=== PATIENT | male | born 1970 | race Caucasian/White ===

== ENCOUNTER 2025-04-13 05:57 | Observation (INO) ==
--- NOTE | 2025-03-20 11:50 | PAT Medication Instructions ---
Medication Instructions Date of Service March 20, 2025 Home Medications Medication Instructions Recorded methocarbamol 500 mg tablet 500 mg PO TID PRN muscle spasms 10/24/24 #90 tabs levothyroxine 100 mcg capsule 100 mcg PO QAM linaclotide 72 mcg capsule (Linzess) 72 mcg PO QAM methocarbamol 500 mg tablet 500 mg PO TID PRN muscle spasms rosuvastatin 20 mg tablet 20 mg PO QPM loratadine 10 mg tablet (Claritin) 10 mg PO QPM ubrogepant 100 mg tablet (Ubrelvy) 100 mg PO UD PRN Migraine Headache DO NOT take the morning of surgery linaclotide 72 mcg capsule (Linzess) 72 mcg PO QAM Take morning of surgery With a small sip of water, OTHERWISE NOTHING TO EAT OR DRINK AFTER MIDNIGHT: levothyroxine 100 mcg capsule 100 mcg PO QAM methocarbamol 500 mg tablet 500 mg PO TID PRN muscle spasms (if needed) ubrogepant 100 mg tablet (Ubrelvy) 100 mg PO UD PRN Migraine Headache (if needed ) Take evening before surgery methocarbamol 500 mg tablet 500 mg PO TID PRN muscle spasms (if needed) rosuvastatin 20 mg tablet 20 mg PO QPM loratadine 10 mg tablet (Claritin) 10 mg PO QPM ubrogepant 100 mg tablet (Ubrelvy) 100 mg PO UD PRN Migraine Headache (if needed) Other Notes If you have any questions please call us at [phone] or [phone] or [phone] or [phone]
--- NOTE | 2025-03-27 11:12 | Anesthesiology Consultation ---
Date of Service March 27, 2025 Assessment & Plan (1) Encounter for pre-operative examination: - Infectious disease screening: Per assessment on 03/27/25- No known recent infectious disease contacts or current infectious disease symptoms. - Cardiology note 03/13/25: "Based on the patient's most recent evaluation in the office, I would assess him to be low cardiovascular risk.." Received same fax again on 03/23/25. Chart Review Chart Review: Acceptable Risk for Surgery and Patient seen in Pre Admission Testing Teaching & Discussion Pre-Anesthesia Teaching/Discussion Notes: Instructed NPO after midnight before surgery,except medications with 15 cc of water. Medication instructions provided according to the PAT guidelines. History Surgery Operation Date: 04/13/25 08:50 Proposed Procedures p C6-C7 Disc Arthroplasty - Bran Louise MD s Possible Anterior Cervical Discectomy and Fusion, Spinal Cord Monitoring - Bran Louise MD Height/Weight Height: 5 ft 10 in Weight: 84.7 kg Allergies Allergy/AdvReac Type Severity Reaction Status Date / Time No Known Drug Allergies Allergy Verified 03/20/25 09:31 Medications Home Medications Medication Instructions Recorded Confirmed Last Taken levothyroxine 100 mcg capsule 100 mcg PO QAM 10/24/24 03/20/25 Unknown linaclotide 72 mcg capsule 72 mcg PO QAM 10/24/24 03/20/25 Unknown (Linzess) methocarbamol 500 mg tablet 500 mg PO TID PRN muscle spasms 10/24/24 03/20/25 Unknown #90 tabs rosuvastatin 20 mg tablet 20 mg PO QPM 10/24/24 03/20/25 Unknown loratadine 10 mg tablet (Claritin) 10 mg PO QPM 12/21/24 03/20/25 Unknown ubrogepant 100 mg tablet (Ubrelvy) 100 mg PO UD PRN Migraine Headache 12/21/24 03/20/25 Unknown Past Medical History Medical History Chronic neck pain w/right hand numbness Constipation History of migraine Hyperlipidemia Hypothyroidism Exercise / Class Metabolic Activity II 4-5 Yardwork/Stairs/Walk up hill (one FS: No CP, no SOB) Past Family History Family History Other No family history of adverse response to anesthesia Past Surgical History Surgical History History of colonoscopy History of hernia repair x2 (R/L) History of wisdom tooth extraction Status post medial meniscus repair Left knee Past Anesthesia History No Hx of Anesthesia Complications and No Family Hx of Anesthesia Complications History of PONV No Hx of PONV and No Hx of Motion Sickness Social History Smoking Status: Never smoker Do You Dip or Chew Tobacco: No (Remote hx, Quit at young age) Hx Alcohol Use: No Hx Substance Use: No substance use type: does not use Review of Systems Patient denies chest pain, shortness of breath, dyspnea on exertion, fever, chills, cough, wheezing. Physical Exam Vital Signs BP 126/79 P 54 TEMP 97.7 SP02 100%RA RESP 16 Physical Mildly decreased cervical extension range of motion. Full TMJ range of motion. TMD 3 finger breaths Mallampati Score II Dentition: missing molars Lungs: clear throughout to auscultation Cardiac: regular rate and rhythm, no murmurs noted Spine: normal Carotid arteries: negative bruit Extremities: no LE edema Lab Results Anesthesia Preop Results Results Anesthesia Widget: WBC 4.12 K/ul (4.8-10.8) L 03/27/25 Hgb 13.8 g/dL (14.0-18.0) L 03/27/25 Hct 40.3 % (42.0-52.0) L 03/27/25 Plt 218 K/uL (130-400) 03/27/25 Na 140 mmol/L (136-145) 03/27/25 K 4.1 mmol/L (3.5-5.1) 03/27/25 Cl 108 mmol/L (98-107) H 03/27/25 CO2 27 mmol/L (21-32) 03/27/25 BUN 17 mg/dl (6-23) 03/27/25 Creat 1.11 mg/dl (0.6-1.4) 03/27/25 Glucose Level 98 mg/dl (70-99(Fasting)) 03/27/25 PT 10.4 Seconds (9.0-12.0) 03/27/25 PTT 24 Seconds (21-31) 03/27/25 INR 1.0 (0.9-1.1) 03/27/25 HA1c 6.3 % (4.5-5.6) H 03/27/25 Blood Type A Positive 03/27/25 Antibody Screen NEGATIVE 03/27/25 Testing Electrocardiogram Date: 03/27/25 SB at 59bpm. Rightward axis. Chest X-Ray Date: 03/27/25 Findings: + NAD
[2025-04-13] MEDS: ACETAMINOPHEN 500 MG TAB PO SCH (06:31)
[2025-04-13] MEDS: LR 60ML/HR IV SCH (06:31)
[2025-04-13] MEDS: LR 15ML/HR IV SCH (06:31)
[2025-04-13] MEDS ORDERED: ONDANSETRON INJ 2 MG/ML 2 ML VIAL ONE (06:56)
[2025-04-13] MEDS ORDERED: GLYCOPYRROLATE 0.2 MG/ML VIAL ONE (06:56)
[2025-04-13] MEDS ORDERED: LIDOCAINE 2% 2 ML VIAL/AMP(20MG/ML) INFIL ONE (06:56)
[2025-04-13] MEDS ORDERED: NEOSTIGMINE METHYLSULFATE 1 MG/ML 10ML VIAL ONE (06:56)
[2025-04-13] MEDS ORDERED: DEXAMETHASONE SOD INJ 4 MG/ML VIAL ONE (06:56)
[2025-04-13] MEDS ORDERED: MIDAZOLAM HCL 1 MG/ML 2ML VIAL ONE (06:56)
[2025-04-13] MEDS ORDERED: ROCURONIUM BROMIDE 10 MG/ML 5 ML VIAL IV ONE ×2 (06:56→09:53)
[2025-04-13] MEDS ORDERED: PROPOFOL IV EMULSION 10 MG/ML 20 ML VIAL IV ONE (06:56)
[2025-04-13] MEDS ORDERED: SUCCINYLCHOLINE CHLORIDE 20 MG/ML 10 ML VIAL IV ONE (06:58)
[2025-04-13] MEDS ORDERED: PHENYLEPHRINE 100MCG/ML 5ML SYR ONE (06:59)
[2025-04-13] MEDS ORDERED: REMIFENTANIL HCL 1 MG VIAL IV ONE (07:04)
[2025-04-13] MEDS ORDERED: PROPOFOL IV EMULSION 10 MG/ML 100 ML VIAL IV ONE (07:04)
[2025-04-13] MEDS ORDERED: ATROPINE SULFATE 0.1 MG/ML 10ML SYR IV PRN (07:09)
[2025-04-13] MEDS ORDERED: HYDROmorphone INJ 1 MG/ML SYRINGE IV PRN ×2 (07:09→13:12)
[2025-04-13] MEDS ORDERED: ONDANSETRON INJ 2 MG/ML 2 ML VIAL IV PRN ×2 (07:09→13:12)
[2025-04-13] MEDS: SCOPOLAMINE 1 MG/72 HR TDSY PATCH TD ONE ×2 (07:10→07:13)
--- NOTE | 2025-04-13 07:23 | History & Physical Report ---
Date of Service April 13, 2025 Assessment & Plan (1) Cervical stenosis of spine: (2) Herniated nucleus pulposus, C6-7 right: Plan Assessment: 54-year-old male with right cervical radiculopathy following a C7 dermatomal pattern with right upper extremity weakness in the C7 myotome, failed conservative care in the form of activity modification, oral medications, epidural injections with symptoms for greater than 1 year. Plan: I discussed treatment options with the patient today, I discussed that he has a C6-7 disc herniation which would correlate with the symptoms he is experiencing into the right upper extremity, do not have much more to offer in the form of conservative care as he has failed appropriate conservative care with symptoms for 1 year or more. He does have some mild findings of cubital tunnel syndrome on the right however his main issue is the pain from the neck into the posterior arm so he would like to take care of that first. We did discuss that even with surgery he may eventually need a cubital tunnel release on the right and he voiced understanding. History of Present Illness Chief Complaint: Right Arm Pain Primary Care Provider: JAMEY Savage HPI: Patient is a 54-year-old male who comes in today for continued right upper extremity radiculopathy that has been ongoing for greater than 1 year duration. The past he had tried activity modification, oral medications and recently went to pain management for an epidural injection. None of these of the provided significant relief of symptoms. Continues with pain that originates from the right side of the neck into the posterior arm and central digits of the hand consistent with a C7 radiculopathy. Allergies Allergy/AdvReac Type Severity Reaction Status Date / Time No Known Drug Allergies Allergy Verified 04/13/25 06:02 Home Medications Medication Instructions Recorded Confirmed Type levothyroxine 100 mcg capsule 100 mcg PO QAM 10/24/24 04/13/25 History linaclotide 72 mcg capsule 72 mcg PO QAM 10/24/24 04/13/25 History (Linzess) methocarbamol 500 mg tablet 500 mg PO TID PRN muscle spasms 10/24/24 04/13/25 Rx #90 tabs rosuvastatin 20 mg tablet 20 mg PO QPM 10/24/24 04/13/25 History loratadine 10 mg tablet (Claritin) 10 mg PO QPM 12/21/24 04/13/25 History ubrogepant 100 mg tablet (Ubrelvy) 100 mg PO UD PRN Migraine Headache 12/21/24 04/13/25 History Past Med/Surg History Problem List Encounter for pre-operative examination Cervical stenosis of spine Herniated nucleus pulposus, C6-7 right Bruxism (teeth grinding) Tinnitus of right ear Sensorineural hearing loss (SNHL) of both ears Foraminal stenosis of cervical region Other cervical disc degeneration at C6-C7 level Numbness of right hand Other cervical disc degeneration, mid-cervical region, unspecified level Cervical radicular pain Medical History Chronic neck pain w/right hand numbness Constipation History of migraine Hyperlipidemia Hypothyroidism Surgical History History of colonoscopy History of hernia repair x2 (R/L) History of wisdom tooth extraction Status post medial meniscus repair Left knee Family History Other No family history of adverse response to anesthesia Social History Smoking Status: Never smoker Second Hand Exposure: No; Do You Dip or Chew Tobacco: No (Remote hx, Quit at young age); Tobacco Cessation Education Requested by Patient: No Hx Alcohol Use: No Hx Substance Use: No Preferred Language: Croatian Communication Ability: Effective Ring Striker Required: No Beliefs That Will Affect Care: None Current Living Situation: Spouse Other Information That Helps Us Care for You: No Feels Safe at Home: Yes Safety Concerns: Feels Safe At This Time Assistive Devices: Glasses Review of Systems All systems reviewed & are unremarkable except as noted in HPI & below. Physical Exam Physical exam: Constitutional: Well developed, appears stated age Psych: patient is coherent and answers questions appropriately, normal affect Eye: Normal gaze, no redness to sclera, pupils round and equal Pulm: Normal respiratory effort, no wheezing Cardiovascular: no significant peripheral edema, 2+ radial pulses Skin shows no rashes, lesions 5/5 muscle strength with testing of deltoids, wrist extensors, triceps, finger flexion, and hand intrinsics with the exception of 4 out of 5 strength right triceps and finger flexion Sensation intact to light touch in the C5-T1 dermatomes bilaterally with paresthesias right C7 dermatome 2+ reflexes at biceps, triceps, and brachioradialis bilaterally Positive Tinel sign right cubital tunnel Negative Edwards sign bilaterally, positive Spurling test on the right Normal gait Results & Data Results & Data Laboratory Results . Diagnostic Findings . PG Care Time/CCT Total # of Minutes Spent Total Time Spent with Patient: Total time spent is greater than 50% in coordination of care (as documented) at patient's floor/unit and/or counseling patient: Coding Level of Care Code None Diagnoses Cervical stenosis of spine M48.02 Herniated nucleus pulposus, C6-7 right M50.223
[2025-04-13] MEDS ORDERED: SUGAMMADEX SODIUM 200 MG/2 ML VIAL IV ONE (08:02)
[2025-04-13] MEDS ORDERED: HYDROmorphone INJ 2 MG/ML SYR/VIAL ONE (08:07)
[2025-04-13] MEDS: VANCOMYCIN HCL 1000MG/20ML VIAL ONE (10:09)
[2025-04-13] MEDS: FLOSEAL HEMOSTATIC MATRIX 5ML TOP ONE (10:09)
--- NOTE | 2025-04-13 10:47 | Operative Report ---
Post Operative Report Procedure Date: April 13, 2025 PREOPERATIVE DIAGNOSES: 1. Cervical radiculopathy. 2. C6-7 disc herniation. POSTOPERATIVE DIAGNOSES: 1. Cervical radiculopathy. 2. C6-7 disc herniation. PROCEDURES PERFORMED: 1. C6-7 total disc replacement ([id number]). SURGEON: Bran Louise MD ANESTHESIA: General endotracheal. ESTIMATED BLOOD LOSS: 10 mL. SPECIMENS: None. DRAINS: Franco drain. COMPLICATIONS: None. DISPOSITION: Stable to postanesthesia care unit. INSTRUMENTATION: ProDisc Vivo INDICATION FOR PROCEDURE: The patient has suffered from severe and unrelenting symptoms despite exhaustive conservative management. After discussing the benefits and risks of continued conservative management versus operative intervention, the patient elected to proceed with surgery. PROCEDURE IN DETAIL: Informed consent was obtained prior to the procedure. In the preoperative holding area, the patient's anterior neck was marked with a marking pen. The patient was taken to the operating room and anesthesia was initiated. The patient was placed supine on a regular operating room table. The neck was placed in a neutral position. All prominences were carefully padded. The anterior neck was prepped and draped in typical sterile fashion. Antibiotics were administered. A timeout was performed. Neuromonitoring was utilized, including somatosensory evoked potentials, running electromyography and motor evoked potentials. These remained stable throughout the case. A left-sided approach was planned. A #10 blade was used to incise the skin. Bryce vie electrocautery was used to maintain meticulous hemostasis as dissection was completed through the subcutaneous and platysma. The interval between the sternocleidomastoid and the strap musculature was identified and bluntly dissected. The carotid sheath was palpated, retracted laterally and protected. The anterior cervical spine was identified and exposed. A spinal needle was placed into the disc space to confirm the appropriate level using x-ray. The longus colli were carefully elevated off the anterior spine laterally. Care was taken to not dissect too laterally so as to protect the sympathetic chains. [place] pins were placed and a small amount of distraction was applied across the disc space. A total discectomy along with bilateral foraminotomies were completed. The posterior longitudinal ligament was taken down. The central thecal sac and the bilateral C7 exiting nerve roots were now completely decompressed. Under fluoroscopy, various trials of the disc replacement were implanted. Ultimately, the appropriate size was determined. The implant was placed midline and to an appropriate depth. Bone wax covered the small area of bleeding bone. The wound was thoroughly irrigated. Meticulous hemostasis was achieved. A single drain was placed deep. The platysma and subcutaneous were closed using braided, absorbable suture. The cutaneous was closed using a 4-0 monofilament, absorbable suture. A sterile dressing was placed. At the end of the case, all needle and sponge counts were correct. The patient was awakened from anesthesia without complication and taken to the PACU in stable condition.
--- NOTE | 2025-04-13 10:58 | Fluoroscopy Report ---
INTRAOPERATIVE RADIOGRAPHS CLINICAL HISTORY: Cervical spine surgery. Fluoro time: 61 seconds Ka,r: 11.84 mGy FINDINGS: 6 Spot fluoroscopic views of the cervical spine are presented. An endotracheal tube is in p lace. On the initial images a surgical probe projects over the disc space at C6-C7. Discectomy change is later shown at this level. The disc spacer appears well aligned. IMPRESSION: Intraoperative images from cervical spine surgery as above. See operative report for deta iled findings. Electronically signed by: Bran Gipson M.D. 04/13/2025 10:57 AM
--- NOTE | 2025-04-13 12:19 | Anesthesiology Progress Note ---
Date of Service April 13, 2025 Anesthesia Post Procedure Vital Signs Vital Signs: Temp Pulse Resp BP Pulse Ox O2 Del Method O2 Flow Rate 04/13/25 12:10 79 18 121/81 95 Nasal Cannula 3 04/13/25 12:00 95 H 14 124/85 94 Nasal Cannula 3 04/13/25 11:50 78 16 133/98 94 Oxymask 4 04/13/25 11:40 78 16 141/94 H 94 Oxymask 6 04/13/25 11:30 85 16 142/85 H 95 Oxymask 9 04/13/25 11:20 69 14 148/92 H 94 Oxymask 9 04/13/25 11:10 83 14 167/101 H 95 Oxymask 9 04/13/25 11:00 77 15 137/83 95 Oxymask 9 04/13/25 10:50 79 14 136/84 90 Oxymask 9 04/13/25 10:44 36 C L 75 15 141/90 H 93 Oxymask 9 04/13/25 06:12 36.5 C 72 18 134/94 96 Room Air Transfer of Care Handoff Completed per policy Notes Mental Status: alert / awake / arousable Patient Amnestic to Procedure: Yes Nausea / Vomiting: adequately controlled Pain: adequately controlled Airway Patency, RR, SpO2: stable & adequate BP & HR: stable & adequate Hydration State: stable & adequate Anesthetic Complications: no major complications apparent and Pt Satisfied with anesthetic care
[2025-04-13] MEDS ORDERED: ONDANSETRON 4 MG OD TAB PO PRN (13:12)
[2025-04-13] MEDS ORDERED: METHOCARBAMOL 500 MG TABLET PO PRN (13:12)
[2025-04-13] MEDS ORDERED: MAGNESIUM HYDROXIDE SUSP 30 ML UDC PO PRN (13:12)
[2025-04-13] MEDS ORDERED: diphenhydrAMINE Capsule 25 MG CAP PO PRN (13:12)
[2025-04-13] MEDS ORDERED: ALUMINUM/MAGNESIUM SUSP 30 ML UDC PO PRN (13:12)
[2025-04-13] MEDS ORDERED: FAMOTIDINE 20 MG TAB PO PRN (13:12)
[2025-04-13] MEDS ORDERED: NALOXONE HCL 0.4 MG/1 ML VIAL/CARP IV PRN (13:12)
[2025-04-13] MEDS ORDERED: PROMETHAZINE 12.5 MG/50.5 ML BAG IV PRN (13:12)
[2025-04-13] MEDS ORDERED: RACEPINEPHRINE 2.25% NEBU SOLN 0.5 ML VIAL INH PRN (13:12)
[2025-04-13] MEDS ORDERED: LORazepam 0.5 MG TAB PO PRN (13:12)
[2025-04-13] MEDS ORDERED: LORazepam Inj 0.5 MG in SYRINGE 0.25 ML IV PRN (13:12)
[2025-04-13] MEDS ORDERED: dexAMETHasone 8 MG in SYRINGE 0 ML IV PRN (13:12)
[2025-04-13] MEDS ORDERED: DO NOT ADMINISTER PNEUMOCOCCAL VACCINE PRN (13:12)
[2025-04-13] MEDS ORDERED: SOD PHOSPHATE/SOD BIPHOSPHATE ENEMA 132 ML BTL PR PRN (13:12)
[2025-04-13] MEDS ORDERED: DO NOT ADMINISTER FLU VACCINE PRN (13:12)
[2025-04-13] MEDS ORDERED: ACETAMINOPHEN 1,000 MG/100 ML VIAL IV PRN (13:12)
[2025-04-13] MEDS ORDERED: METOCLOPRAMIDE HCL INJ 5 MG/ML 2 ML VIAL IV PRN (13:12)
[2025-04-13] MEDS ORDERED: DEXAMETHASONE SOD INJ 4 MG/ML VIAL IV SCH (14:00)
[2025-04-13] MEDS: dexAMETHasone 10 MG in SYRINGE 0 ML IV SCH (16:05)
[2025-04-13] MEDS: LACTATED RINGER'S 1,000 ML IV SCH (16:05)
[2025-04-13] MEDS: CHECK SCOPOLAMINE PATCH PLACEMENT SCH (16:12)
[2025-04-13] MEDS: ACETAMINOPHEN 500 MG TAB PO PRN (19:45)
[2025-04-13] MEDS: DOCUSATE SODIUM/SENNA 50/8.6MG TAB PO SCH (21:15)
[2025-04-13] MEDS: LORATADINE 10 MG TAB PO SCH (21:15)
[2025-04-13] MEDS: ROSUVASTATIN CALCIUM 20 MG TAB PO SCH (21:15)
[2025-04-14] MEDS: POLYETHYLENE (MIRALAX) 17 GM PACK PO SCH (05:14)
[2025-04-14 05:42] VITALS: RESP 18
[2025-04-14] MEDS: LEVOTHYROXINE SODIUM 100 MCG TABLET PO SCH (06:36)
[2025-04-14 06:51] LABS: Hematocrit (blood only) 38.4 % (42.0-52.0); Hemoglobin 13.3 g/dL (14.0-18.0); Mean Corpuscular Hemoglobin 31.3 pg (25.0-34.0); Mean Corpuscular Volume 90.4 fL (80.0-100.0); Platelet Count 232 K/uL (130-400); RDW Standard Deviation 39.9 fL (36.4-46.3); Red Blood Count 4.25 M/uL (4.70-6.10); White Blood Count 15.20 K/ul (4.8-10.8)
[2025-04-14 07:22] LABS: Immature Granulocytes # (auto) 0.09 K/uL (0.01-0.20); Immature Granulocytes % (auto) 0.6 %; Toxic Vacuolation 1+
[2025-04-14 07:31] LABS: Anion Gap 10.0 (3-11); Blood Urea Nitrogen 17.0 mg/dl (6-23); Calcium 9.3 mg/dl (8.6-10.3); Carbon Dioxide 24.0 mmol/L (21-32); Chloride 106.0 mmol/L (98-107); Creatinine Clr Calc Pharmacy 81.9 ml/min; Glucose 157.0 mg/dl (70-99(Fasting)); Potassium 4.2 mmol/L (3.5-5.1); Sodium 140.0 mmol/L (136-145)
[2025-04-14 08:21] VITALS: BP 122/76; TEMP 97.9; O2SAT 93
--- NOTE | 2025-04-14 10:08 | Orthopedic Progress Note ---
Date of Service April 14, 2025 Assessment & Plan (1) Status post cervical disc replacement: (2) Cervical stenosis of spine: (3) Herniated nucleus pulposus, C6-7 right: Plan Discontinue drain, minimal drainage over the last dressing change Pain control with oral oxycodone, Tylenol, muscle relaxer discharge home today after x-rays Subjective Status post cervical disc arthroplasty, no radicular complaints this morning. Minor dysphagia, no airway issues overnight Review of Systems All systems reviewed & are unremarkable except as noted in HPI & below. Physical Exam 5 out of 5 strength C5-T1 myotomes Sensation intact light touch C5-T1 dermatome drain with minimal output over last 10 hours Results & Data Results & Data Laboratory Results . Diagnostic Findings . PG Care Time/CCT Total # of Minutes Spent Total Time Spent with Patient: Total time spent is greater than 50% in coordination of care (as documented) at patient's floor/unit and/or counseling patient: Coding Level of Care Code 33671 Post Operative Follow-Up Diagnoses Status post cervical disc replacement Z98.890 Cervical stenosis of spine M48.02 Herniated nucleus pulposus, C6-7 right M50.223
--- NOTE | 2025-04-14 10:29 | Discharge Summary ---
Date of Service April 14, 2025 Admission HPI (Per Admitting) HPI: Patient is a 54-year-old male who comes in today for continued right upper extremity radiculopathy that has been ongoing for greater than 1 year duration. The past he had tried activity modification, oral medications and recently went to pain management for an epidural injection. None of these of the provided significant relief of symptoms. Continues with pain that originates from the right side of the neck into the posterior arm and central digits of the hand consistent with a C7 radiculopathy. Admission Exam (Per Admitting) Physical exam: Constitutional: Well developed, appears stated age Psych: patient is coherent and answers questions appropriately, normal affect Eye: Normal gaze, no redness to sclera, pupils round and equal Pulm: Normal respiratory effort, no wheezing Cardiovascular: no significant peripheral edema, 2+ radial pulses Skin shows no rashes, lesions 5/5 muscle strength with testing of deltoids, wrist extensors, triceps, finger flexion, and hand intrinsics with the exception of 4 out of 5 strength right triceps and finger flexion Sensation intact to light touch in the C5-T1 dermatomes bilaterally with paresthesias right C7 dermatome 2+ reflexes at biceps, triceps, and brachioradialis bilaterally Positive Tinel sign right cubital tunnel Negative Edwards sign bilaterally, positive Spurling test on the right Normal gait Principal Diagnosis Same as "Discharge Diagnosis" noted below under Discharge Instructions. Discharge Exam 5 out of 5 strength C5-T1 myotomes Sensation intact light touch C5-T1 dermatome drain with minimal output over last 10 hours Discharge Data Procedures Performed Operation Date: 04/13/25 07:30 Actual Procedures p C6-C7 Disc Arthroplasty, Spinal Cord Monitoring(Not Applicable) - Bran Louise MD Ordered Studies 04/13/25 07:30 FL cervical 2-3V Routine Hospital Course (1) Status post cervical disc replacement: (2) Herniated nucleus pulposus, C6-7 right: (3) Cervical stenosis of spine: (4) Foraminal stenosis of cervical region: Plan Patient was admitted postoperatively for pain control and mobilization with physical therapy. They worked with physical therapy and met all goals. Pain was controlled with IV pain medication and transitioned to oral medications. Normal return of bowel and bladder function. They worked with physical therapy, vital signs were acceptable, no need for transfusion, deemed safe for discharge. PG Care Time/CCT Total # of Minutes Spent Total Time Spent with Patient: Total time spent is greater than 50% in coordination of care (as documented) at patient's floor/unit and/or counseling patient: Discharge Plan Discharge Items Patient Disposition: Home - Self-Care Reason For Visit: Cerivcal Radicular Pain, Herniated Nucleus Pulposu Discharge Diagnosis: s/p C6-7 disc arthroplasty Activity: Per Instructions section Lifting: No more than 10 pounds Bathing Comment: per instructions Non-emergency contact: Surgeon Call non-emergency contact if: your symptoms worsen, your pain is worsening, your temperature is above 101 and your wound has increased drainage Follow-up/Referrals: Bran Louise MD [Surgeon] - (05/02/25 @ 08:30) Tea Gomes CRNP [Primary Care Provider] - Diet: Regular Addtl Attending Provider Instructions: Instructions for Non-Fusion Spine Surgery (Cervical Disc Arthroplasty) YOU WILL BE PROVIDED WITH A PRESCRIPTION STRENGTH ANTI-INFLAMMATORY MEDICATION. THIS WILL BE THE BEST PAIN MEDICATION FOR THE TYPE OF PAIN YOU WILL EXPERIENCE. DO NOT TAKE ANY HERBAL SUPPLEMENTS MEDICATIONS: Toradol or other prescription non-steroidal anti-inflammatory drugs (NSAIDs): take regularly post op for pain control and to prevent excessive bone formation,and continue until instructed to stop, as long as you do not have a contraindication for NSAIDs from your primary care physician. Oxycodone, Percocet, or Hydrocodone For breakthrough pain. Cyclobenzaprine (Flexeril), Tizanide (Zanaflex), or Methocarbamol (Robaxin) For muscle spasms. Senna-s and Miralax Senna-S twice daily, 17g packet of Miralax with water once daily while taking narcotics. These medications prevent constipation caused by the pain medications. Ondansetron (Zofran) For nausea Cephalexin (Keflex) or Sulfamethoxazole/trimethoprim (Bactrim). Antibiotic. You are given IV antibiotics while in the hospital; you may or may not be given a prescription for home; this will be decided after surgery. Your pre-surgery prescription medications With the exception of anti- inflammatory medications, blood thinners (Coumadin, Plavix, Eliquis, Pradaxa, etc}, or narcotic pain medications, you may resume your home medications. For the above medications, you will be given specific instructions. ACTIVITIES: Walking Walking is mandatory. You need to walk at least once every hour while awake. Walking will help prevent blood clots in your legs and help prevent spasms in your back. Bending/twisting It is safe to gently bend, roll over, sit up, lie on your back and do other normal activities. You may sleep in any position that is comfortable. Avoid athletic activities until further notice. Lifting Do not lift more than 10 lbs until further notice. Driving You may drive when you are no longer taking narcotic pain medications, can safely operate the brake/gas/clutch pedals, and can move your head/neck for visibility. Tobacco All tobacco products are strictly prohibited after surgery. Any use will dramatically increase your risk of complications. This includes vapor cigarettes, marijuana, nicotine patches and gums. Bracing/Cervical Collar Not required; if you are provided a soft collar it is for comfort and may be worn as desired. SURGICAL DRESSING Initial operative dressing is to stay on for 2 days; you may change if it becomes saturated. From then on, change the dressing daily with dry gauze and paper tape. Continue to change dressing until there is no discharge on the dressing. Once there is no discharge on the dressing, you may leave the incision open to air and make sure to keep it out of the sun. For supplies, stop by any local pharmacy. Any type of gauze dressing is acceptable. Do not put any ointments on the wound. SHOWERING You may shower 48 hours after your surgery. Cover the incision with Saran Wrap and tape the edges to prevent water from contacting the incision. If water contacts the incision, pat dry. No baths or submerging the incision until seen in the clinic at follow up appointment. QUESTIONS Please contact the office with questions or concerns: [phone] If outside normal business hours, you will be connected with the on-call physician. Pending Studies at Discharge: No Stand-Alone Forms: [employer], Smoking Cessation Medications and DC Order Prescriptions: New methocarbamol 500 mg Tablet 500 mg PO Q6H PRN (Reason: muscle spasm) Qty: 120 0RF oxycodone-acetaminophen [Endocet] 5-325 mg tablet 1 tab PO Q4H PRN (Reason: pain) Qty: 60 0RF Continued Ubrelvy 100 mg tablet 100 mg PO UD PRN (Reason: Migraine Headache) loratadine [Claritin] 10 mg tablet 10 mg PO QPM rosuvastatin 20 mg tablet 20 mg PO QPM levothyroxine 100 mcg capsule 100 mcg PO QAM Linzess 72 mcg capsule 72 mcg PO QAM Discontinued methocarbamol 500 mg tablet 500 mg PO TID PRN (Reason: muscle spasms) Qty: 90 0RF Discharge Orders: Discharge Order (Routine); Ordered 04/14/25 Ordered By: Bran Louise Admission Data Admit Date/Time: 04/13/25 10:50 Attending Provider: Bran Louise Admit Provider: Bran Louise Primary Care Provider: Tea Gomes
--- NOTE | 2025-04-14 10:37 | XRay Report ---
Technique: 4 views of the cervical spine are submitted for review Comparison is made to the prior examination dated 10/24/2024 Findings: The cervical vertebrae are in normal alignment with no listhesis seen. No fracture is identified. No focal osseous lesion is evident. No prevertebral soft tissue swelling is noted. There is new interbody fusion at C6-7. There is a surgical drain anterior to C7 Impression: New C6-7 fusion Electronically signed by Quentin Christopher 04-14-2025 10:36 AM
[2025-04-14 11:32] VITALS: PULSE 103
[2025-04-16] MEDS ORDERED: REMOVE TRANSDERM-SCOP PATCH ONE (06:00)
== END 2025-04-14 11:59 | disposition home or self-care (01) ==
LOC: PACUINP 05:57 → ASU 05:57 → 3W 14:39